=== PATIENT | female | born 1980 | race Hispanic/Latino ===

== ENCOUNTER 2017-10-31 04:55 | Emergency (ER) | payer OTHER ==
[~2017-10-31] VITALS: Ht 154.9 cm; Wt 81.6 kg
[2017-10-31 05:00] VITALS: BP 111/64
--- NOTE | 2017-10-31 05:25 | ED NECK/BACK PAIN COMPLAINT ---
History of Present Illness General Chief Complaint: Low Back Pain/Injury Stated Complaint: PT C/O BACK PAIN Source: patient Exam Limitations: no limitations Vital Signs & Intake/Output Vital Signs & Intake/Output SEE TRIAGE Allergies Coded Allergies: No Known Allergies (10/31/17) Reconcile Medications Cyclobenzaprine HCl 10 MG TABLET 1 TAB PO TID PRN SPASM DO NOT DRIVE WITH THIS MEDICATION Ibuprofen 800 MG TABLET 1 TAB PO TID PRN PAIN Triage Nurses Notes Reviewed? yes Onset: Abrupt Duration: day(s): (FEW) Timing: recent history Location: T-spine Modifying Factors: movement, pain medication, rest Associated Symptoms: muscle spasm HPI: This is a 37-year-old female with history of scoliosis and rods in her back presents to the ER chief complaint of 2 days worth of left upper back pain. 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 Since that time she's had pain without relief from either Advil or Aleve. No fever or chills. No lower back pain or symptoms. No urinary symptoms. She states she was unable to sleep last night. Past History Travel History Traveled to [place] past 21 day No Medical History Any Pertinent Medical History? see below for history Musculoskeletal: chronic back pain, SCOLIOSIS Surgical History Surgical History: SCOLIOSIS SURGERY, METAL RODS IMPLANTED Family History Hx Contributory? No Review of Systems Review of Systems Constitutional: Denies: chills, fever. Eyes: Reports: no symptoms. Ears, Nose, Throat, Mouth: Reports: no symptoms. Respiratory: Reports: no symptoms. Cardiovascular: Reports: no symptoms. Gastrointestinal/Abdominal: Reports: no symptoms. Musculoskeletal: Reports: back pain, muscle pain, muscle stiffness. Skin: Reports: no symptoms. Neurological/Psychological: Denies: numbness, paresthesia, tingling, weakness. All Other Systems: Reviewed and Negative Physical Exam Physical Exam General Appearance: well developed/nourished, mild distress Head: atraumatic Eyes: Bilateral: PERRL, EOMI. Ears, Nose, Throat, Mouth: hearing grossly normal Neck: normal inspection, supple, full range of motion Respiratory: normal breath sounds Cardiovascular: regular rate/rhythm Gastrointestinal: soft, non-tender Back: normal inspection Extremities: normal range of motion Neurologic/Psych: awake, alert, oriented x 3, normal mood/affect Skin: intact, normal color, warm/dry Core Measures CVA/TIA Diagnosis: No Progress Differential Diagnosis: herniated disc, myofascial strain, ACUTE ON CHRONIC PAIN , HARDWARE FAILURE Plan of Care: Current Medications Sig/Shahnaz Start time Last Medication Dose Stop Time Status Admin Dexamethasone 8 MG ONCE ONE 10/31 529 UNVr (Decadron) 10/31 530 Ketorolac 60 MG ONCE ONE 10/31 529 UNVr Tromethamine 10/31 530 (Toradol) Laboratory Tests 10/31/17510: Urine Test Cancelled Departure Departure Time of Disposition: 526 Disposition: HOME OR SELF CARE Condition: Stable Clinical Impression Primary Impression: Muscle strain of left upper back Referrals: Patient Has No Primary Care Dr (PCP) Additional Instructions: TAKE THE IBUPROFEN AND CYCLOBENZAPRINE DIRECTED FOLLOW UP WITH YOUR DOCTOR IN THE OFFICE RETURN TO THE ER FOR ANY CHANGING OR WORSENING SYMPTOMS Departure Forms: Customer Survey General Discharge Information Prescriptions: Current Visit Scripts Ibuprofen 1 TAB PO TID PRN PAIN #20 TAB Cyclobenzaprine HCl 1 TAB PO TID PRN SPASM #[address] WITH THIS MEDICATION
[2017-10-31] MEDS ORDERED: IBUPROFEN800 M1 PO (05:28)
[2017-10-31] MEDS ORDERED: CYCLOBENZAPRINE10 M1 PO (05:28)
== END 2017-10-31 05:30 ==
LOC: ERH 04:55
DX: S29.012A Strain of muscle and tendon of back wall of thorax, initial encounter (principal); X58.XXXA Exposure to other specified factors, initial encounter; Y92.9 Unspecified place or not applicable; Y93.9 Activity, unspecified
CPT/HCPCS: 81025; 96372; J1885